=== PATIENT | female | born 1985 | race Caucasian/White ===

== ENCOUNTER 2017-10-06 21:17 | Emergency (ER) | payer OTHER, MEDICAID, SELFPAY ==
[2017-10-06 21:56] VITALS: BP 131/86; PULSE 116; RESP 16; TEMP 36.5; O2SAT 99
== END 2017-10-06 22:33 | disposition left against medical advice (07) ==
DX: K08.89 Other specified disorders of teeth and supporting structures (principal)
CPT/HCPCS: 99281; 99282

== ENCOUNTER 2018-02-21 21:32 | Emergency (ER) | payer OTHER, MEDICAID, SELFPAY ==
[2018-02-21 21:51] VITALS: BP 144/95; PULSE 105; RESP 15; TEMP 36.6; O2SAT 100; BMI 27.4
[2018-02-21 22:33] VITALS: BP 144/95; PULSE 105; RESP 15; TEMP 36.6; O2SAT 100; BMI 27.4
--- NOTE | 2018-02-21 22:46 | ED.EAR ---
HPI - Ear Problem General Chief complaint: Ear Stated complaint: RT EAR PAIN Time Seen by Provider: 02/21/18 22:32 Source: patient Mode of arrival: ambulatory Limitations: no limitations History of Present Illness HPI Narrative: Patient is a 32-year-old female who presents with right ear pain more than left ear pain but both ongoing for about 3 weeks. It hurts every time she touches it she does not want to lay down. She has a Q-tip in there. she denies any drainage no loss of hearing. No sore throat she says she has had fever but is currently afebrile. Complaint: ear pain Location: bilateral Duration: constant Severity: moderate Relieving factors: nothing Exacerbating factors: nothing Context: recent illness Discharge from ear: no Associated symptoms ear: fever Treatment prior to arrival: none Related Data Home Medications Medication Instructions Recorded Confirmed No Known Home Medications 12/27/17 12/27/17 Previous Rx's Medication Instructions Recorded hydroxyzine HCl 25 mg tablet 25 mg PO TID-QID PRN #30 tab 12/27/17 Allergies Allergy/AdvReac Type Severity Reaction Status Date / Time amoxicillin [AMOXICILLIN] Allergy Unknown HIVES Verified 02/21/18 21:51 clavulanic acid Allergy Unknown HIVES Verified 02/21/18 21:51 [CLAVULANIC ACID] montelukast [From SINGULAIR] Allergy Unknown BLOODY NOSE Verified 02/21/18 21:51 Review of Systems Review of Systems GENERAL: Denies chills,fever HEENT: See HPI RESPIRATORY: Denies dyspnea, cough, wheezing CARDIOVASCULAR: Denies chest pain, palpitations GASTROINTESTINAL: Denies nausea, vomiting MUSCULOSKELETAL: Denies extremity pain, injury SKIN: No rash, no laceration, no pruritus NEUROLOGIC: Denies weakness, dizziness, headache, numbness 8 point review of systems is negative except for those stated above and HPI PFSH Medical History Patient denies medical problems (Acute) Social History Smoking Status: Current every day smoker alcohol intake: former Exam Initial Vital Signs Initial Vital Signs: Vital Signs Temperature 97.8 F 02/21/18 21:51 Pulse Rate 105 H 02/21/18 21:51 Respiratory Rate 15 02/21/18 21:51 Blood Pressure 144/95 H 02/21/18 21:51 Pulse Oximetry 100 02/21/18 21:51 GENERAL: Well-appearing, well-nourished and in no acute distress. HEENT: Head atraumatic,EOMI, pupils reactive, neck is supple EARS: Right ear: Swelling of canal no discharge at tender externally tympanic membrane is not erythematous no bulging Left ear swelling of canal no discharge mild tenderness externally tympanic membrane visualized non erythematous PHARYNX: No erythema, no tonsillar exudate, no cervical lymphadenopathy CARDIOVASCULAR: Regular rate and rhythm without murmurs, rubs or gallops. RESPIRATORY: Breath sounds equal bilaterally, no wheezes rales or rhonchi. ABDOMEN: Soft, nontender. Normoactive bowel sounds all 4 quadrants. No guarding or rebound. EXTREMITIES: Normal range of motion, no clubbing or edema. Neurovascularly intact NEUROLOGICAL: Alert and oriented x4.Normal gait and speech. SKIN: Warm, dry, no laceration, no petechiae, no rashes or lesions. Course Orders Ordered: Discontinued Medications Neomycin/Polymyxin/Hydrocortisone (Cortisporin Otic) 2 drops EAR-BOTH NOW ONE Stop: 02/21/18 22:55 Last Admin: 02/21/18 23:01 Dose: 2 drops Vital Signs - 8 hr 02/21/18 21:51 02/21/18 22:33 Temperature 97.8 F 97.8 F Pulse Rate 105 H 105 H Respiratory Rate 15 15 Blood Pressure 144/95 H 144/95 H Pulse Oximetry 100 100 Discharge Plan Departure Patient Disposition: Home Clinical Impression: Bilateral otitis externa Discharge Date/Time: 02/21/18 23:05 Interventions: ED Discharge Assessment Last Done: 02/21/18 23:04 Instructions: DI for Otitis Externa Activity Restrictions/Additional Instructions: *You have been diagnosed with bilateral otitis externa *What to do: Do not put anything in the ears no swimming no acute *Continue to take medications as directed polytrim 2 drop every 4 hr in both ear *Follow up with your primary care provider in 2-3 days *Return to ER if you should have or any new, worsening or concerning symptoms Prescriptions: No Action No Known Home Medications RF: 0 hydroxyzine HCl 25 mg tablet 25 mg PO TID-QID PRN (Reason: itching) Qty: 30 RF: 0
[2018-02-21] MEDS: NEOMY/POLYM B/HC OTIC 10 ML 2 DROPS EAR-BOTH (23:01)
== END 2018-02-21 23:05 | disposition home or self-care (01) ==
PROVIDERS: Emergency Provider Emergency Medicine
DX: H66.93 Otitis media, unspecified, bilateral (principal)
CPT/HCPCS: 99282; 99283

== ENCOUNTER → 2018-03-21 12:36 | Outpatient (CLI) | payer OTHER, MEDICAID, SELFPAY | PROVIDERS: Visit Provider Physician Assistant | DX: N39.0 Urinary tract infection, site not specified (principal) | CPT/HCPCS: 87077; 87086; 87186 ==

== ENCOUNTER 2018-04-04 21:09 | Emergency (ER) | payer OTHER, MEDICAID, SELFPAY ==
[2018-04-04 21:25] VITALS: BP 137/94; PULSE 107; RESP 15; TEMP 36.9; O2SAT 100; BMI 27.8
[2018-04-04 22:23] VITALS: BP 121/79; PULSE 96; RESP 17; O2SAT 100
--- NOTE | 2018-04-04 22:28 | ED.FEMALEGU ---
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 She says that she has typically normal regular menstrual periods. Her last 1 was March 10 through the . She had some spotting yesterday is but did not think much of it. Today she has had heavy bleeding for the last 4 hr the going through a super tampon an hour. She has some abdominal cramping no dizziness or lightheadedness. Her test is negative. sHe admits that she has had an abnormal Pap smear about 4 years ago while she was she never went back to have another Pap smear. Her mother also has a history of cervical cancer with hysterectomy by the age of 29. MD Complaint: vaginal bleeding Related Data Previous Rx's Medication Instructions Recorded medroxyprogesterone 10 mg PO DAILY #80 tab 04/04/18 Allergies Allergy/AdvReac Type Severity Reaction Status Date / Time amoxicillin [AMOXICILLIN] Allergy Unknown HIVES Verified 04/04/18 21:25 clavulanic acid Allergy Unknown HIVES Verified 04/04/18 21:25 [CLAVULANIC ACID] montelukast [From SINGULAIR] Allergy Unknown BLOODY NOSE Verified 04/04/18 21:25 Review of Systems Review of Systems GENERAL: Denies chills, fatigue, malaise, fever, sweats, travel HEENT: Denies sinus pain, ear pain, sore throat, difficulty swallowing, neck pain RESPIRATORY: Denies dyspnea, cough, wheezing, hemoptysis, sputum. CARDIOVASCULAR: Denies chest pain, palpitations, orthopnea, edema GASTROINTESTINAL: Denies nausea, vomiting, abdominal pain, diarrhea, constipation, melena. : see HPI MUSCULOSKELETAL: Denies weakness, joint pain, or bony pain SKIN: No rash, no erythema, no pruritus NEUROLOGIC: Denies weakness, dizziness, headache, numbness, change in speech, confusion PSYCHIATRIC: No concerning psychosocial issues. 12 point review of systems is negative except for those stated above and HPI PFSH Medical History Patient denies medical problems (Acute) Social History Smoking Status: Current every day smoker alcohol intake: former Social History Smoking Status: Current every day smoker alcohol intake: former Exam Initial Vital Signs Initial Vital Signs: Vital Signs Temperature 98.5 F 04/04/18 21:25 Pulse Rate 107 H 04/04/18 21:25 Respiratory Rate 15 04/04/18 21:25 Blood Pressure 137/94 H 04/04/18 21:25 Pulse Oximetry 100 04/04/18 21:25 GENERAL: alert cooperative well-appearing female HEENT: Head atraumatic,EOMI, pupils reactive, CARDIOVASCULAR: Regular rate and rhythm without murmurs, rubs or gallops. RESPIRATORY: Breath sounds equal bilaterally, no wheezes rales or rhonchi. ABDOMEN: Soft, nontender. Normoactive bowel sounds all 4 quadrants. No guarding or rebound. PELVIC: normal female external genitalia, blood in vaginal vault cervical os open clot noted. blood is easily removed with large Q-tip. No abnormal cervical lesions noted EXTREMITIES: Normal range of motion, no clubbing or edema. Neurovascularly intact NEUROLOGICAL: Alert and oriented x4.Normal gait and speech. SKIN: Warm, dry, no laceration, no petechiae, no rashes or lesions. Course Orders Ordered: ED Orders 04/04/18 22:36 US pelvic complete Stat 04/04/18 22:40 Complete Blood Count AUTO DIFF Stat Comprehensive Metabolic Panel Stat Partial Thromboplastin Time Stat Prothrombin Time INR Stat Discontinued Medications Medroxyprogesterone Acetate (Medroxyprogesterone) 20 mg PO NOW ONE Stop: 04/04/18 23:36 Last Admin: 04/04/18 23:40 Dose: 20 mg Medroxyprogesterone Acetate (Medroxyprogesterone) 20 mg PO NOW ONE Stop: 04/04/18 23:58 Last Admin: 04/05/18 00:06 Dose: 20 mg Vital Signs - 8 hr 04/04/18 21:25 04/04/18 22:23 04/05/18 00:04 Temperature 98.5 F Pulse Rate 107 H 96 H 89 Respiratory Rate 15 17 14 Blood Pressure 137/94 H 129/88 Blood Pressure [Left Arm] 121/79 Pulse Oximetry 100 100 100 MDM - Female Genitourinary Lab Data Attestation: I reviewed the patient's lab results. Result diagrams: 04/04/18 22:40 04/04/18 22:40 Lab Results 04/04/18 04/04/18 04/04/18 Range/Units 22:40 22:40 22:40 WBC 11.2 H (4.5-11.0) X10^3/uL RBC 4.86 (4.0-5.2) X10^6/uL Hgb 12.4 (12.0-16.0) g/dL Hct 38.8 (36-46) % MCV 79.7 L (80-100) fL MCH 25.6 L (26-34) PG MCHC 32.1 (30-36) % RDW 14.1 (11.6-14.8) % Plt Count 338 (150-400) X10^3/uL Neut % (Auto) 68.6 (50-75) % Lymph % (Auto) 23.4 L (25-40) % Bibb % (Auto) 5.8 (3-14) % Eos % (Auto) 1.4 L (2-4) % Baso % (Auto) 0.8 (0-2) % Neut # (Auto) 7700 H (9965-8824) /uL Lymph # (Auto) 2600 (4756-2809) /uL Bibb # (Auto) 600 (0-900) /uL Eos # (Auto) 200 (0-450) /uL Baso # (Auto) 100 (0-100) /uL PT 12.7 (10.1-12.7) SECONDS INR 1.1 (0.9-1.3) APTT 31 (26.4-36.2) SECONDS Sodium 139 (137-145) mmol/L Potassium 3.9 (3.4-5.1) mmol/L Chloride 103 (98-107) mmol/L Carbon Dioxide 25 (22-32) mmol/L BUN 14 (7-17) mg/dL Creatinine 0.70 (0.52-1.04) mg/dL Estimated GFR > 60.0 (>60) mL/min BUN/Creatinine Ratio 20.0 (6-22) Glucose 114 H (70-100) mg/dL Calcium 9.0 (8.4-10.2) mg/dL Total Bilirubin 1.0 (0.2-1.3) mg/dL AST 23 (14-36) IU/L ALT 26 (9-52) IU/L Alkaline Phosphatase 60 (38-126) U/L Total Protein 8.1 (6.3-8.2) g/dL Albumin 4.7 (3.5-5.0) g/dL Globulin 3.4 (1.7-4.1) g/dL Albumin/Globulin Ratio 1.4 (1.0-2.8) Point of Care Testing Test Results Negative Urine Dip Bedside Urine Glucose Negative Bedside Urine Bilirubin - Negative Bedside Urine Ketone - Negative Urine Specific [place] 1.030 Bedside Urine Occult Blood +++ Bedside Urine pH 6.0 Bedside Urine Protein + 30 Bedside Urine Urobilinogen - Negative Bedside Urine Nitrite - Negative Bedside Urine Leukocytes - Negative Esterase Imaging Data Pelvic ultrasound: 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 Probable small complex follicle in right ovary. Survey scanning of the kidneys demonstrates left hydronephrosis. Etiology uncertain. MDM Narrative Medical decision making narrative: the patient's bleeding has slowed while she is in the ED. Hemodynamically stable without tachycardia. She does not have good follow-up but actually has an appointment in 2 months with a new PCP. She is given Provera instructions on when to return. I strongly recommended Pap smear, which she agrees to and will see her PCP about this. Discharge Plan Departure Patient Disposition: Home Clinical Impression: Vaginal bleeding Discharge Date/Time: 04/05/18 00:04 Interventions: ED Discharge Assessment Last Done: 04/05/18 00:04 Instructions: DI for Vaginal Bleeding Activity Restrictions/Additional Instructions: *You have been diagnosed with is vaginal bleeding *What to do: you do need to be seen by OBGYN and have this monitored. Possible further testing. *Continue to take medications as directed Pro bare a 10 mg tablet take 2 tablets every 2 hr until bleeding stops or significantly slows down, if bleeding does not stop please call provider or return to ED then take 2 tablets every 4 hr for 48 hr then take 2 tablets every 6 hr for 48 hr then it take 2 tablets every 12 hr for 48 hr then take 2 tablets a day for 7 days *Follow up with your primary care provider in 2-3 days *Return to ER if you should have persistent bleeding going through more than 1 super pad or tampon in 1 hr, increased abdominal pain, lightheadedness, passing out or any new, worsening or concerning symptoms Prescriptions: New medroxyprogesterone 10 mg tablet 10 mg PO DAILY Qty: 80 RF: 0 Referrals: [facility] [Provider Group]
--- NOTE | 2018-04-04 22:36 | DI.US.S_ITS ---
PROCEDURE: US PELVIC COMPLETE INDICATIONS: MENOMETRORRHAGIA TECHNIQUE: Real-time scanning was performed of the pelvic organs, with image documentation. Additional endovaginal scanning was necessary due to incomplete visualization of the adnexal and endometrial structures by transabdominal scanning. COMPARISON: None. FINDINGS: Transabdominal scanning: Limited scanning through the kidneys shows no hydronephrosis. No pathologic free abdominal or pelvic fluid. Endovaginal scanning: Uterus: Uterus is normal in size at 8.5 x 4.0 x 5.3 cm. The endometrium measures 9.2 mm in combined thickness. Trace complex fluid within the endometrial complex consistent with blood products.. Ovaries: Ovaries normal in size measuring 3.5 x 2.0 x 2.1 cm on the right and 2.3 x 1.5 x 1.1 cm on the left. Thickwalled, complex right ovarian cyst measuring 2.0 x 1.5 x 1.6 cm. IMPRESSION: 1. Mildly thick walled, complex right ovarian cyst measuring up to 2.0 cm. 2. Trace complex fluid within the endometrial complex suggesting residual blood products. Note: These findings are concordant with the preliminary interpretation. Dictated by: Harley LOTT Interpreted: Dominique Estrada MD on 04/05/2018 at 8:38 Approved by: Dominique Estrada M.D. on 04/05/2018 at 10:56
[2018-04-04 22:54] LABS: Add Manual Diff / Slide Review NO; Basophils Absolute Auto 100 /uL (0-100); Basophils Percent Auto 0.8 % (0-2); Eosinophils Absolute Auto 200 /uL (0-450); Eosinophils Percent Auto 1.4 % (2-4); Hematocrit 38.8 % (36-46); Hemoglobin 12.4 g/dL (12.0-16.0); Lymphocytes Absolute Auto 2600 /uL (1100-4500); Lymphocytes Percent Auto 23.4 % (25-40); Mean Corpuscular HGB Conc 32.1 % (30-36); Mean Corpuscular Hemoglobin 25.6 PG (26-34); Mean Corpuscular Volume 79.7 fL (80-100); Monocytes Absolute Auto 600 /uL (0-900); Monocytes Percent Auto 5.8 % (3-14); Neutrophils Absolute Auto 7700 /uL (1500-7000); Neutrophils Percent Auto 68.6 % (50-75); Platelet Count 338 X10^3/uL (150-400); Red Blood Cell Count 4.86 X10^6/uL (4.0-5.2); Red Cell Distribution Width 14.1 % (11.6-14.8); White Blood Cell Count 11.2 X10^3/uL (4.5-11.0)
[2018-04-04 23:00] LABS: INR 1.1 (0.9-1.3); Prothrombin Time 12.7 SECONDS (10.1-12.7)
[2018-04-04 23:02] LABS: PTT Partial Thromboplastin Tim 31 SECONDS (26.4-36.2)
[2018-04-04 23:04] LABS: Alanine Aminotransferase 26 IU/L (9-52); Albumin 4.7 g/dL (3.5-5.0); Albumin Globulin Ratio 1.4 (1.0-2.8); Alkaline Phosphatase 60 U/L (38-126); Aspartate Aminotransferase 23 IU/L (14-36); Blood Urea Nitrogen 14 mg/dL (7-17); Carbon Dioxide 25 mmol/L (22-32); Chloride 103 mmol/L (98-107); Estimated Glomerular Filt Rate > 60.0 mL/min (>60); Globulin 3.4 g/dL (1.7-4.1); Glucose 114 mg/dL (70-100); HEMOLYSIS < 15 (0-50); Potassium 3.9 mmol/L (3.4-5.1); Sodium 139 mmol/L (137-145); Total Protein 8.1 g/dL (6.3-8.2)
[2018-04-04] MEDS: MEDROXYPROGESTERONE ACETATE 10 MG TABLET 20 MG PO (23:40)
[2018-04-05 00:04] VITALS: BP 129/88; PULSE 89; RESP 14; O2SAT 100
[2018-04-05] MEDS: MEDROXYPROGESTERONE ACETATE 10 MG TABLET 20 MG PO (00:06)
== END 2018-04-05 00:04 | disposition home or self-care (01) ==
PROVIDERS: Emergency Provider Emergency Medicine
DX: N93.9 Abnormal uterine and vaginal bleeding, unspecified (principal)
CPT/HCPCS: 36591; 76830; 76856; 80053; 81003; 81025; 85025; 85610; 85730; 99283; 99284

== ENCOUNTER 2019-03-27 17:29 | Emergency (ER) | payer OTHER, MEDICAID, SELFPAY ==
[2019-03-27 17:36] VITALS: BP 128/67; PULSE 92; RESP 18; TEMP 36.8; O2SAT 100
--- NOTE | 2019-03-27 17:57 | DI.US.S_ITS ---
PROCEDURE: US OB <= 14 WEEKS FETUS INDICATIONS: BLEEDING OUTSIDE/PRIOR DATING DATA: Last menstrual period (LMP): 02/08/19. LMP-based estimated date of delivery (KWESI): 11/15/19. First dating scan (date and location): 03/27/19 this study. Estimated date of delivery (KWESI) from first dating scan: 11/19/19. TECHNIQUE: Real-time scanning was performed of the fetus and maternal pelvic organs, with image documentation. Endovaginal scanning was also performed to better visualize the fetus and maternal ovaries. COMPARISON: None. FINDINGS: Embryo: 5 mm crown-rump length, correlates with a gestational age of 6 weeks 1 day. cardiac activity at 113 beats per minute was observed. A yolk sac with normal appearance was also seen. Measurement variability in dating: +/- 4 weeks by LMP, +/- 7 days by mean sac diameter (use before 6 weeks gestation if crown-rump length not able to be measured), +/- 5 days by crown-rump length (up to 8 weeks 6 days gestation), +/- 7 days by crown-rump length (up to 13 weeks 6 days gestation). Maternal organs: Ovaries normal considering gestational status. Limited images through the kidneys demonstrate no hydronephrosis. IMPRESSION: Single living intrauterine gestation, with gestational age estimated at 6 weeks 1 day, plus or -5 days. anatomic survey is recommended at 20 weeks gestation. The delivery date is projected to be centered on 11/19/19. No perigestational hemorrhage is currently seen. Dictated by: Ryan Mena M.D. on 03/27/2019 at 21:37 Approved by: Ryan Mena M.D. on 03/27/2019 at 21:39
[2019-03-27 18:36] LABS: Bacteria Urine None Seen
[2019-03-27 18:48] LABS: Culture Indicated Urine Cult Not Indicated; RBC Urine 1-5/HPF (0-5/HPF); Squamous Epithelial Cell Urine 0-1 /HPF (0-5/HPF); WBC Urine 0-1/HPF (0-5/HPF)
[2019-03-27 19:16] LABS: HCG Quantitative /Beta subunit 21379 mIU/mL
[2019-03-27 20:00] VITALS: BP 124/66; PULSE 73; RESP 14; O2SAT 99
[2019-03-27 21:24] VITALS: BP 121/64; PULSE 74; RESP 15; O2SAT 99
--- NOTE | 2019-03-27 21:41 | ED_ITS ---
HPI - <CHRISTIANO Isaac - Last Filed: 03/27/19 22:05> General Chief complaint: Vaginal Bleeding Stated complaint: 7 weeks , started spotting Time Seen by Provider: 03/27/19 17:45 Source: patient Mode of arrival: Ambulatory Limitations: no limitations History of Present Illness HPI Narrative: This is a 34-year-old female, smoker, who presents to ED with her significant other and son with chief complaint of vaginal bleeding. LMP was 02/08/19 and is currently with with spontaneous AB3 and is 6 week 5/7 EGA at this time. Patient reports has not seen by OB provider or had verification of IUP. Actually she does have appointment tomorrow at [facility] for 1st OB ultrasound test. Patient reports vaginal bleeding started 2 hours ago before coming into ED and which is light as 1st day of normal menstruation flow after she had an intercourse. Patient denies abdominal pain, or urinary symptoms. Date of Last Menstrual Period: 02/08/19 Patient : Yes Related Data Previous Rx's Medication Instructions Recorded albuterol sulfate 90 mcg/actuation 2 inhalation INHALATION Q4-6H PRN 04/23/18 aerosol inhaler #8.5 gram benzonatate 100 mg capsule 100 mg PO TID PRN #30 cap 04/23/18 codeine 10 mg-guaifenesin 100 mg/5 10 ml PO .QHS PRN #120 ml 04/23/18 mL oral liquid prenat.vits,kathie,dvj-rcnc-wwdlx 1 tab PO DAILY #30 tab 03/27/19 Allergies Allergy/AdvReac Type Severity Reaction Status Date / Time amoxicillin [AMOXICILLIN] Allergy Unknown HIVES Verified 04/23/18 19:08 clavulanic acid Allergy Unknown HIVES Verified 04/23/18 19:08 [CLAVULANIC ACID] montelukast [From SINGULAIR] Allergy Unknown BLOODY NOSE Verified 04/23/18 19:08 Review of Systems <CHRISTIANO Isaac - Last Filed: 03/27/19 22:05> Review of Systems Narrative: General: Denies fever, chills, fatigue, malaise, sweats. HEENT: Denies sinus pain, ear pain, sore throat, difficulty swallowing, dizziness. Respiratory: Denies dyspnea, cough, wheezing, hemoptysis, sputum. Cardiovascular: Denies chest pain, palpitations, orthopnea, edema. Gastrointestinal: Denies nausea, vomiting, abdominal pain, diarrhea, constipation, melena. : Denies dysuria, frequency, incontinence, hematuria, urinary retention. Musculoskeletal: Denies weakness, joint pain or bony pain. Skin: Denies rash, skin lesions, or other. Neurologic: Denies weakness, headache, numbness, change in speech, confusion, seizures, incoordination. Psychiatric: No concerning psychosocial issues. 12-point review of systems is negative except for those stated above. Genitourinary Genitourinary: Reports abnormal vaginal bleeding (about 6 week 5/7 at this time), Denies dysuria, Denies pelvic pain, Denies urinary hesitancy and De nies urinary urgency PMFSH - <CHRISTIANO Isaac - Last Filed: 03/27/19 22:05> Past Medical History Surgical history: Reports and other (Colonoscopy, ankle surgery) Date of Last Menstrual Period: 02/08/19 Patient : Yes Exam <CHRISTIANO Isaac - Last Filed: 03/27/19 22:05> Narrative Exam Narrative: GEN: Alert, oriented x 3, well appearing and nourished, and in no acute distress. Head: Normal cephalic, atraumatic. No scalp or temporal tenderness, palpable mass or rash. EYES: Pupils are equal, round, and reactive to light and accommodation. Extraocular muscles are intact bilaterally. There is no subconjunctival hemorrhage, exudate and sclera non-icteric. ENT: Bilateral auditory canals and tympanic membranes clear. Hearing grossly intact. Nose without bleeding, purulent discharge or deviation. Facial sinuses nontender to palpate. Mucous membrane moist, no mucosal lesion. Throat without erythema, tonsillar hypertrophy or exudate. Uvula in midline, airway patent. Neck: Trachea in midline. No JVD, non-tender without lymphadenopathy. No mass es or thyroid megaly. Supple, non-tender and no meningeal signs. CARDIAC: Normal regular rate and rhythm without murmurs, gallops, or rubs. No chest wall tenderness. No peripheral edema, cyanosis or pallor. Capillary refill is less than 2 seconds. RESPIRATORY: Lungs are clear to auscultate bilaterally. No cough, wheezes, rales, or rhonchi. No stridor, respiratory distress, increase work of breathing, or accessary muscle used. ABD: Abdomen soft, nontender and non-distended. No guarding or rebound tenderness to palpate. Bowel sounds are normal in all 4 quadrants. There is no palpable masses or organomegaly. EXT: Full painless ROM of all extremities with no loss of sensation, strength, effusion or edema. SKIN: Warm, dry, normal color for patient. No erythema, lesions or rash over visible areas. BACK: Nontender without deformity or crepitance. No flank tenderness. NEUROLOGICAL: Alert and oriented to place, time and person. Sensation and motor function intact bilaterally. No facial droops, dysphasia. PSYCHIATRIC: Good judgement and reason, without hallucinations, abnormal affect or abnormal behaviors during the examination. Initial Vital Signs Initial Vital Signs: Vital Signs Temperature 98.2 F 03/27/19 17:36 Pulse Rate 92 H 03/27/19 17:36 Respiratory Rate 18 03/27/19 17:36 Blood Pressure 128/67 03/27/19 17:36 Pulse Oximetry 100 03/27/19 17:36 <Gordon Gupta DO - Last Filed: 03/27/19 22:23> Initial Vital Signs Initial Vital Signs: Vital Signs Temperature 98.2 F 03/27/19 17:36 Pulse Rate 92 H 03/27/19 17:36 Respiratory Rate 18 03/27/19 17:36 Blood Pressure 128/67 03/27/19 17:36 Pulse Oximetry 100 03/27/19 17:36 Scores <CHRISTIANO Isaac - Last Filed: 03/27/19 22:05> GCS [place] coma scale eye opening: Spontaneous [place] coma scale verbal response: Orientated Charlie coma scale motor response: Obey commands Charlie coma scale total score: 15 Course <CHRISTIANO Isaac - Last Filed: 03/27/19 22:05> Orders Ordered: ED Orders 03/27/19 17:57 US OB <= 14 weeks fetus Stat 03/27/19 18:10 Urine Microscopic Stat 03/27/19 18:11 ABO RH Type Stat HCG Quantitative /Beta subunit Stat Vital Signs Vital signs: Vital Signs - 8 hr 03/27/19 17:36 03/27/19 20:00 03/27/19 21:24 Temperature 98.2 F Pulse Rate 92 H 73 74 Respiratory Rate 18 14 15 Blood Pressure 128/67 Blood Pressure [Right Arm] 124/66 121/64 Pulse Oximetry 100 99 99 <Gordon Gupta DO - Last Filed: 03/27/19 22:23> Orders Ordered: ED Orders 03/27/19 17:57 US OB <= 14 weeks fetus Stat 03/27/19 18:10 Urine Microscopic Stat 03/27/19 18:11 ABO RH Type Stat HCG Quantitative /Beta subunit Stat Vital Signs Vital signs: Vital Signs - 8 hr 03/27/19 17:36 03/27/19 20:00 03/27/19 21:24 Temperature 98.2 F Pulse Rate 92 H 73 74 Respiratory Rate 18 14 15 Blood Pressure 128/67 Blood Pressure [Right Arm] 124/66 121/64 Pulse Oximetry 100 99 99 MDM - OB/Uterine Contractions <CHRISTIANO Isaac - Last Filed: 03/27/19 22:05> Differential Diagnosis Differential diagnosis: Likely other (Threatened , ectopic ) Medical Records Attestation: I reviewed the patient's medical records. Lab Data Attestation: I reviewed the patient's lab results. Labs: Lab Results 03/27/19 03/27/19 03/27/19 Range/Units 18:10 18:11 18:11 HCG, Quant [id number] mIU/mL Urine RBC 1-5/hpf (0-5/HPF) Urine WBC 0-1/hpf (0-5/HPF) Ur Squamous Epith Cells 0-1 /hpf (0-5/HPF) Urine Bacteria None seen (None) Ur Culture Indicated? Cult not indicated Blood Type O Positive Point of Care Testing Test Results Positive Urine Dip Bedside Urine Glucose Negative Bedside Urine Bilirubin - Negative Bedside Urine Ketone - Negative Urine Specific [place] 1.025 Bedside Urine Occult Blood ++ Bedside Urine pH 6.0 Bedside Urine Protein - Negative Bedside Urine Urobilinogen - Negative Bedside Urine Nitrite - Negative Bedside Urine Leukocytes - Negative Esterase Imaging Data US - OB: Radiologist's Impression: [address] [address] Ultrasound Report Signed Patient: Kalpana Ramírez FMR#: [id number] : 1985Acct:[id number] Age/Sex: 34 / FDate of Service: 03/27/19 Loc: ED Accession Number: [id number] Procedure: US OB <= 14 weeks fetus Ordering Provider: Edis Zuleta PROCEDURE: US OB <= 14 WEEKS FETUS INDICATIONS: BLEEDING OUTSIDE/PRIOR DATING DATA: Last menstrual period (LMP): 02/08/19. LMP-based estimated date of delivery (KWESI): 11/15/19. First dating scan (date and location): 03/27/19 this study. Estimated date of delivery (KWESI) from first dating scan: 11/19/19. TECHNIQUE: Real-time scanning was performed of the fetus and maternal pelvic organs, with image documentation. Endovaginal scanning was also performed to better visualize the fetus and maternal ovaries. COMPARISON: None. FINDINGS: Embryo: 5 mm crown-rump length, correlates with a gestational age of 6 weeks 1 day. cardiac activity at 113 beats per minute was observed. A yolk sac with normal appearance was also seen. Measurement variability in dating: +/- 4 weeks by LMP, +/- 7 days by mean sac diameter (use before 6 weeks gestation if crown-rump length not able to be measured), +/- 5 days by crown-rump length (up to 8 weeks 6 days gestation), +/- 7 days by crown-rump length (up to 13 weeks 6 days gestation). Maternal organs: Ovaries normal considering gestational status. Limited images through the kidneys demonstrate no hydronephrosis. IMPRESSION: Single living intrauterine gestation, with gestational age estimated at 6 weeks 1 day, plus or -5 days. anatomic survey is recommended at 20 weeks gestation. The delivery date is projected to be centered on 11/19/19. No perige stational hemorrhage is currently seen. Dictated by: Ryan Mena M.D. on 03/27/2019 at 21:37 Approved by: Ryan Mena M.D. on 03/27/2019 at 21:39 MDM Narrative Medical decision making narrative: Patient with with 3AB and currently EGA of 6 weak and5/7 days presents to ED with light vaginal bleeding after intercourse. Patient denies chest pain, breathing dizziness or abdominal pain. Patient's IUP has not been verified at this time. UA is negative for infection with positive UhCG. BetaHCG is 21,379 today and patient's blood type is O- positive. Ultrasound for pelvic verified IUP with normal heart tone of a single living with gestational age estimated at 6 week 1 day +/-5 days. Patient reports vaginal bleeding has been slow down at this time and she is asymptomatic and with stable vital signs. Return precautions were discussed with the patient and patient discharged to home with vitamin and advised to follow up with Ob provider. Patient verbalized understanding and agrees with the treatment plan. <Gordon Gupta, DO - Last Filed: 03/27/19 22:23> Lab Data Labs: Lab Results 03/27/19 03/27/19 03/27/19 Range/Units 18:10 18:11 18:11 HCG, Quant [id number] mIU/mL Urine RBC 1-5/hpf (0-5/HPF) Urine WBC 0-1/hpf (0-5/HPF) Ur Squamous Epith Cells 0-1 /hpf (0-5/HPF) Urine Bacteria None seen (None) Ur Culture Indicated? Cult not indicated Blood Type O Positive Point of Care Testing Test Results Positive Urine Dip Bedside Urine Glucose Negative Bedside Urine Bilirubin - Negative Bedside Urine Ketone - Negative Urine Specific [place] 1.025 Bedside Urine Occult Blood ++ Bedside Urine pH 6.0 Bedside Urine Protein - Negative Bedside Urine Urobilinogen - Negative Bedside Urine Nitrite - Negative Bedside Urine Leukocytes - Negative Esterase Discharge Plan Departure Patient Disposition: Home Clinical Impression: Threatened Discharge Date/Time: 03/27/19 22:01 Instructions: DI for Vaginal Bleeding During Activity Restrictions/Additional Instructions: You have been diagnosed with [vaginal bleeding during . Estimated date of delivery is 11/19/19 and verified normal heart tone with intrauterine . Beta HCG level was 21,379 today. Urine does not appears to be h aving on infection. Your blood type is O positive.] What to do: *Take your medications as directed. You should take vitamins daily. Avoid smoking, drinking alcohol or any drug use. Please limit using medications to Tylenol if you have any pain or fever. Pelvic rest until vaginal bleeding stops. *Follow up with your primary care provider in 2-3 days, call for an appointment. Let them know you were seen in the ED and that we asked you to be seen in follow up. *Return to ED if you have any new, worsening, or concerning symptoms, such as [severe vaginal bleeding, abdominal pain, fever, chest pain, breathing difficulty, unable to tolerate fluids or any acute concerns]. Prescriptions: New prenat.vits,kathie,gdf-ophf-nlata Tablet 1 tab PO DAILY Qty: 30 RF: 0 No Action benzonatate 100 mg capsule 100 mg PO TID PRN (Reason: cough) Qty: 30 RF: 0 codeine-guaifenesin [Cheratussin AC] 10-100 mg/5 mL liquid 10 ml PO .QHS PRN (Reason: cough limiting sleep) Qty: 120 RF: 0 albuterol sulfate 90 mcg/actuation HFA aerosol inhaler 2 inhalation INHALATION Q4-6H PRN (Reason: shortness of breath or wheezing) Qty: 8.5 RF: 0 Referrals: Zara Rivers DO [Non-Staff] - <Gordon Gupta DO - Last Filed: 03/27/19 22:23> Sign Out Provider Sign Out Attestation: Dr Gupta Co-Sign Statement: I was available for consultation during this patient's emergency department visit. This chart is signed by myself for administrative purposes only. I did not have direct contact with this patient during this visit. They were seen independently by the APC.
== END 2019-03-27 22:01 | disposition home or self-care (01) ==
PROVIDERS: Emergency Provider Nurse Practitioner Family
DX: O20.0 Threatened abortion (principal); Z3A.01 Less than 8 weeks gestation of pregnancy
CPT/HCPCS: 36415; 76801; 76817; 81003; 81015; 81025; 84702; 86900; 86901; 99283; 99284

== ENCOUNTER → 2019-07-11 14:09 | Outpatient (CLI) | payer OTHER, MEDICAID, SELFPAY ==
--- NOTE | 2019-07-11 | DI.US.S_ITS ---
PROCEDURE: US OB >= 14 WEEKS FETUS INDICATIONS: 20 WEEK ANATOMY SCAN OUTSIDE/PRIOR DATING DATA: Last menstrual period (LMP): 02/08/19. LMP-based estimated date of delivery (KWESI): 11/15/19. First dating scan (date and location): 03/27/19. Estimated date of delivery (KWESI) from first dating scan: 11/19/19. TECHNIQUE: Real-time scanning was performed of the fetus, with image documentation and biometric measurements. Endovaginal scanning: Not performed COMPARISON: None. FINDINGS: General: A single living intrauterine gestation is present. Presentation: Transverse with head towards maternal right side Placenta: Placental position is anterior, without previa. Amniotic fluid index: 19.9 cm, normal range is 5-24 cm. heart rate: 132 beats per minute. Maternal cervical canal: 3.8 cm long. Normal lower limit is 2.5 cm. biometrics: Biparietal diameter: 5.3 cm, 22 weeks, one day Head circumference: 19.7 cm, 21 weeks, 6 days Abdominal circumference: 17.6 cm, 22 weeks, 3 days Femur length: 3.5 cm, 21 weeks, one day Estimated gestational age from initial scan: 21 weeks, 2 days Composite gestational age from present scan: 21 week, 6 days Estimated weight and percentile: 459 g, 77% Measurement variability for biometric dating: +/- 7 days from 14 weeks to 15 weeks 6 days gestation, +/- 10 days from 16 weeks to 21 weeks 6 days gestation, +/- 2 weeks from 22 weeks to 27 weeks 6 days gestation, +/- 3 weeks for 28 weeks gestation or later. weight reference: 4500 g or EFW >90/95% is considered macrosomia or large for gestational age. EFW <10% is small for gestational age. EFW 5% or less is considered intra-uterine growth restriction. Anatomic survey: Neuro: Ventricles are non-dilated at less than 10 mm. Cisterna magna is normal at 3-11 mm. Cerebellum is normal in size and morphology. Nuchal skin fold: Normal at less than 6 mm between 14-21 weeks gestational age. Face: Nose and lips, facial profile are normal. Spine: Not well-seen Heart: 4-chambered heart is present, with normal ventricular outflow tracts. Diaphragm: Diaphragm is intact. Stomach: Left-sided stomach is present. Kidneys: No hydronephrosis. Normal is less than 5 mm in 2nd trimester, less than 7 mm in 3rd trimester. Cord: 3-vessel cord has orthotopic insertion. Bladder: Normal in size. Extremities: All 4 extremities identified. IMPRESSION: 1. Single live intrauterine with fetus in transverse lie. Normal amount of an inadequate fluid. Normal growth. 2. spine is not well visualized due to position. Rest of the anatomic survey is normal. Dictated by: Jose Hurt M.D. on 07/11/2019 at 17:03 Approved by: Jose Hurt M.D. on 07/11/2019 at 17:06
== END ==
PROVIDERS: Referring Provider Nurse Practitioner Obstetrics & Gynecology; Visit Provider Nurse Practitioner Obstetrics & Gynecology
DX: Z36.89 Encounter for other specified antenatal screening (principal); Z3A.21 21 weeks gestation of pregnancy
CPT/HCPCS: 76811

== ENCOUNTER → 2019-08-13 14:19 | Outpatient (CLI) | payer OTHER, MEDICAID, SELFPAY ==
--- NOTE | 2019-08-13 | DI.US.S_ITS ---
PROCEDURE: US OB FOLLOW UP INDICATIONS: FOLLOW-UP SPINE OUTSIDE/PRIOR DATING DATA: Last menstrual period (LMP): 02/08/19. LMP-based estimated date of delivery (KWESI): 11/15/19. First dating scan (date and location): 03/27/19. Estimated date of delivery (KWESI) from first dating scan: 11/19/19. TECHNIQUE: Real-time scanning was performed of the fetus, with image documentation and biometric measurements. Endovaginal scanning: Not performed COMPARISON: [facility], OB >= 14 WEEKS FETUS, 07/11/2019, 14:24. [facility], OB <= 14 WEEKS FETUS, 03/27/2019, 21:07. FINDINGS: General: A single living intrauterine gestation is present. Presentation: Vertex, spine not well visualized however maternal right side Placenta: Placental position is anterior, without previa. Amniotic fluid index: 14.0 cm, normal range is 5-24 cm. heart rate: 150 beats per minute. Maternal cervical canal: 3.7 cm long. Normal lower limit is 2.5 cm. Other: spine again not well visualized due to gestational position. IMPRESSION: Single living intrauterine fetus in vertex presentation. Spine again not well visualized secondary to gestational position despite best attempts, consider repeat examination for followup. Dictated by: Nate Anderson M.D. on 08/13/2019 at 16:30 Approved by: Nate Anderson M.D. on 08/13/2019 at 16:38
== END ==
PROVIDERS: Referring Provider Nurse Practitioner Obstetrics & Gynecology; Visit Provider Nurse Practitioner Obstetrics & Gynecology
DX: Z36.2 Encounter for other antenatal screening follow-up (principal); Z3A.26 26 weeks gestation of pregnancy
CPT/HCPCS: 76816

== ENCOUNTER → 2019-09-25 15:16 | Outpatient (ROUT) | payer OTHER, MEDICAID, SELFPAY ==
[2019-09-25 15:26] LABS: Hematocrit 31.3 % (36-46); Hemoglobin 10.1 g/dL (12.0-16.0); Mean Corpuscular HGB Conc 32.3 % (30-36); Mean Corpuscular Hemoglobin 25.4 PG (26-34); Mean Corpuscular Volume 78.6 fL (80-100); Platelet Count 402 X10^3/uL (150-400); Red Blood Cell Count 3.98 X10^6/uL (4.0-5.2); Red Cell Distribution Width 13.8 % (11.6-14.8); White Blood Cell Count 16.5 X10^3/uL (4.5-11.0)
[2019-09-25 15:33] LABS: UR Morphine/Opiate cutoff 300 Negative (Negative); Ur Creatinine Normal (Normal); Ur Specific Gravity Normal (Normal); Urine Amphetamines Negative (Negative); Urine Barbiturates Negative (Negative); Urine Benzodiazepines Negative (Negative); Urine Cocaine Negative (Negative); Urine MDMA Negative (Negative); Urine Methadone Negative (Negative); Urine Methamphetamines Negative (Negative); Urine Oxycodone Negative (Negative); Urine Phencyclidine Negative (Negative); Urine Tetrahydrocannabinol Positive (Negative); Urine Tricyclic Antidepressant Negative (Negative); Urine pH Normal (Normal)
[2019-09-25 15:38] LABS: Glucose 115 mg/dL (70-100)
== END ==
PROVIDERS: Visit Provider Nurse Practitioner Obstetrics & Gynecology
DX: O09.523 Supervision of elderly multigravida, third trimester (principal); Z13.1 Encounter for screening for diabetes mellitus; Z3A.32 32 weeks gestation of pregnancy
CPT/HCPCS: 80305; 82947; 85027

== ENCOUNTER → 2019-10-16 14:54 | Outpatient (ROUT) | payer OTHER, MEDICAID, SELFPAY | PROVIDERS: Visit Provider Nurse Practitioner Obstetrics & Gynecology | DX: Z34.90 Encounter for supervision of normal pregnancy, unspecified, unspecified trimester (principal); Z36.85 Encounter for antenatal screening for Streptococcus B; Z3A.36 36 weeks gestation of pregnancy | CPT/HCPCS: 87081 ==

== ENCOUNTER 2019-10-23 10:43 | Inpatient (IN) | payer OTHER, MEDICAID, SELFPAY ==
[2019-10-23] VITALS (8 sets, daily range): BP systolic 85–114; BP diastolic 45–65; PULSE 80–92; RESP 10–18; TEMP 35.9–36.2; O2SAT 96–99
--- NOTE | 2019-10-23 13:01 | PM.OBHP.1 ---
OB HPI Date/Time Date of admission: 10/23/19 Date Patient Seen: 10/23/19 Time Patient Seen: 12:30 History of Present Condition Chief complaint: observation : 3 Para: 1 Estimated Date of Delivery: 11/15/19 Estimated Gestational Age (weeks): 36.5 Narrative: Kalpana Ramírez is a 34 year old female @ [id number] PPROM this morning at 0900 with immediate onset of mild contractions. +FM. Fluid is clear. GBS is negative. Partner is incarcerated and her mother is present for support. Indications Operative indications ( section): previous uterine surgery History of Present care: good care Dating criteria: LMP confirmed by 1st trimester US Ultrasounds: normal mid trimester US Obstetrical complications: none Preadmission Labs Blood type: O (+) positive -: Antibody screen: negative, Cystic fibrosis screen: negative, GBS status: negative, HBsAG: negative, HIV: negative and RPR/VDLR: negative -: Chlamydia screen: not detected and Gonorrhea screen: not detected -: Rubella: not immune HCT: 31.3 HCAB: negative PAP: Normal Cell-free DNA: negative, female 1 hr GTT: 90 Narrative: [id number] on admission Prior (ies) History: 1999-early elective 09/05/12- primary for active phase arrest @ 41wks, male 9#2oz, GDMA1 Evaluation Evaluation Baseline heart rate: 140 Variability: Moderate (11-25) monitor accelerations: Present monitor decelerations: Absent Contraction Frequency (minutes): 4 Uterine Contraction Intensity: Mild Cervical dilation (cm): 1 Cervical effacement (%): 70 station: -2 Non-invasive Membranes Rupture Test: positive PFSH Medical History (Updated 10/23/19 @ 13:23 by Evelyne Valle CNM) Depression (Acute) Patient denies medical problems (Acute) Surgical History (Updated 09/30/19 @ 18:45 by Lynne Luo MD) Status post section (Acute) Social History Smoking Status: Current every day smoker alcohol intake: former Meds Home Medications and Allergies Home Medications Medication Instructions Recorded Confirmed Type albuterol sulfate 90 mcg/actuation 2 inhalation INHALATION Q4-6H PRN 04/23/18 09/30/19 Rx aerosol inhaler #8.5 gram prenat.vits,kathie,pxa-wmnv-iwnxq 1 tab PO DAILY #30 tab 03/27/19 09/30/19 Rx Double Electric breast Pump and #1 each 10/16/19 Rx Supplies ferrous sulfate 325 mg PO DAILY 10/23/19 10/23/19 History Allergies Allergy/AdvReac Type Severity Reaction Status Date / Time amoxicillin [AMOXICILLIN] Allergy Unknown HIVES Verified 09/30/19 15:52 clavulanic acid Allergy Unknown HIVES Verified 09/30/19 15:52 [CLAVULANIC ACID] montelukast [From SINGULAIR] Allergy Unknown BLOODY NOSE Verified 09/30/19 15:52 Review of Systems Review of Systems ROS: Yes All systems reviewed with the patient and are negative except as otherwise documented Exam Vital Signs (past 8 hours): BP 122/73, [id number], T36.3C Temporal Assessment and Plan Assessment and Plan Assessment and Plan narrative: Admit, routine pre-op orders. Consulted for primary KRISTIN. Anticipate 48 hour admission.
[2019-10-23 13:03] LABS: COVID19 -Nasal RAPID Negative (Negative)
[2019-10-23 13:24] LABS: Add Manual Diff / Slide Review NO; Basophils Absolute Auto 100 /uL (0-100); Basophils Percent Auto 0.7 % (0-2); Eosinophils Absolute Auto 200 /uL (0-450); Eosinophils Percent Auto 0.8 % (2-4); Hematocrit 31.2 % (36-46); Lymphocytes Absolute Auto 2300 /uL (1100-4500); Lymphocytes Percent Auto 12.2 % (25-40); Mean Corpuscular Hemoglobin 24.6 PG (26-34); Mean Corpuscular Volume 76.8 fL (80-100); Monocytes Absolute Auto 700 /uL (0-900); Neutrophils Absolute Auto 15300 /uL (1500-7000); Neutrophils Percent Auto 82.3 % (50-75); Platelet Count 332 X10^3/uL (150-400); Red Blood Cell Count 4.06 X10^6/uL (4.0-5.2); Red Cell Distribution Width 15.1 % (11.6-14.8); White Blood Cell Count 18.6 X10^3/uL (4.5-11.0)
[2019-10-23] MEDS: CEFAZOLIN 2 GM/100 ML FROZ.PIGGY IV (13:55)
--- NOTE | 2019-10-23 14:04 | SUR.OPER ---
Supine on Padded OR bed, head on pillow, safety belt at thigh, arms secured on padded arm boards at <90 degrees abduction. Bump under right buttock. Legs uncrossed with pillow under knees, gel pad to heels, tape over blanket to lower legs.
--- NOTE | 2019-10-23 14:04 | SUR.OPER ---
heart tones 144. Cord Blood x 2 and placenta to L&D with OB Rn
[2019-10-23] MEDS: LACTATED RINGERS 1,000 ML 100 ML IV (14:12)
--- NOTE | 2019-10-23 14:13 | SUR.OPER ---
Time of live female 1411.
--- NOTE | 2019-10-23 14:44 | P.PCN_ITS ---
Procedures Date/Time Date of procedure: 10/23/19 Time of procedure: 14:11 General Procedure description: I assisted the OB continuing education instructor in the section for this patient. My responsibilities included retracting and suctioning, providing fundal pressure during delivery and following with suture during closure. Please see the OB's note for details of the surgery. Complications: none
--- NOTE | 2019-10-23 15:17 | SUR.PHASEI ---
Stable PACU stay, low BP now resolved treated with IV fluids.
[2019-10-23] MEDS: KETOROLAC 30 MG/ML VIAL IV ×2 (16:40→22:36)
[2019-10-23] MEDS: diphenhydrAMINE 50 MG/ML VIAL 25 MG IV (17:37)
--- NOTE | 2019-10-23 18:16 | PM.GYNOP.1 ---
Operative Date/Time/Diagnoses Date of procedure: 10/23/19 Time of procedure: 14:35 Pre-op diagnosis: 36 weeks gestation Spontaneous rupture of membranes Previous C section Post-op diagnosis: same Procedure & Clinicians Procedure: Procedures Operation Date: 10/23/19 13:15 Actual Procedures Side Surgeon p Section Lynne Luo MD Indications: 36 weeks gestation Spontaneous rupture of membranes Previous C section Surgeon: Lynne Luo Automatic Serging Machine Operator: Evelyne Valle Anesthesia Type: Spinal (with Duramorph) Operative Notes Findings: Live female in vertex presentation Normal uterus, tubes and ovaries Closure Type: primary Specimen(s): other (Placenta to path, cord bloods to lab) Applied: catheter (To continuous drainage) Estimated blood loss (mL): 350 Blood products transfused: none Procedure in detail: After informed consent was obtained, the patient was taken to the operating room where she was placed in the seated position. After spinal anesthesia with Duramorph was administered, she was placed in the dorsal supine position with a leftward tilt. A time-out was performed. After spinal anesthesia was found be adequate, a Pfannenstiel skin incision was made through the previous incision and carried through to the underlying layer of fascia. The fascia was nicked in the midline and the incision extended bilaterally with the Saxena scissors. There were some adhesions in the subcutaneous layer and near the fascia. The superior aspect of the fascial incision was grasped with the Alex clamps, elevated, and underlying rectus muscles dissected off sharply and bluntly. Attention was then turned to the inferior aspect of this incision which in a similar fashion, was grasped with the Alex clamps, elevated, and underlying rectus muscles dissected off sharply and bluntly. The rectus muscles were in the midline. The peritoneum was grasped between 2 hemostats and entered sharply with the Metzenbaum scissors. There was the peritoneal adhesion was taken down with the Bovie and Metzenbaum scissors. The peritoneal incision was extended superiorly and inferiorly with good visualization of the bladder. The bladder blade was inserted. The vesicouterine peritoneum was identified, grasped with the pickup, and entered sharply with the Metzenbaum scissors. This incision was extended bilaterally, and the bladder flap was created digitally. The lower uterine segment was found to be very thin. The lower uterine segment was incised in a transverse fashion. Upon entering the amniotic sac there was a small amount of clear amniotic fluid. The infant's head was delivered with vacuum assistance. The nose and mouth were suctioned with bulb suction. The remainder of the body delivered without difficulty. The cord was double clamped and cut. Cord bloods were obtained. The placenta was delivered spontaneously with slight traction. Pitocin was given in the IV fluids. The uterus was firm. The uterus was cleared of all clots and debris. The uterine incision was closed with 1. Chromic in a running interlocking fashion. A 2nd layer of the same same suture was used for an imbricating layer. Hemostasis was achieved. The tubes and ovaries were examined and were found to be normal. The bladder flap was not reapproximated. The peritoneum was closed using 2 0 Vicryl in a running fashion. The fascia was reapproximated using 0 Vicryl in a running fashion. The subcutaneous layer was irrigated with warm normal saline. Four simple interrupted sutures with 3 0 Vicryl were placed to reapproximate the subcutaneous layer. The skin was closed with 4 0 Biosyn in a subcuticular fashion. Steri-Strips, and an Aquacel dressing were placed. The fundus of the uterus was marked with a marker. The uterus was expressed of a small amount of old blood. Sponge, lap, and instrument counts were correct x2. The patient tolerated the procedure well, and was taken to PACU in stable condition. Complications: none Post-operative Condition: stable Disposition: PACU Plan for aftercare: To Center after recovery
[2019-10-23] MEDS: OXYCODONE/ACETAMINOPHEN 5/325 TABLET 1 TAB PO (21:45)
[2019-10-23] MEDS: diphenhydrAMINE 25 MG TABLET PO (22:36)
[2019-10-24] MEDS: LACTATED RINGERS 1,000 ML 100 ML IV (00:32)
[2019-10-24] MEDS: KETOROLAC 30 MG/ML VIAL IV ×2 (04:16→10:30)
[2019-10-24 06:08] LABS: Hematocrit 26.8 % (36-46); Hemoglobin 8.7 g/dL (12.0-16.0)
[2019-10-24] MEDS: OXYCODONE/ACETAMINOPHEN 5/325 TABLET 1 TAB PO ×3 (10:30→23:14)
[2019-10-24] MEDS: DOCUSATE 250 MG CAPSULE PO (10:30)
[2019-10-24] MEDS: diphenhydrAMINE 25 MG TABLET PO ×2 (10:30→15:46)
[2019-10-24] MEDS: PRENATAL VIT,CALC/IRON/FOLIC 1 TABLET 1 TAB PO (10:30)
[2019-10-24] MEDS: IBUPROFEN 600 MG TABLET PO ×2 (15:47→23:15)
--- NOTE | 2019-10-24 17:54 | PM.OBPN.1 ---
Subjective - OB Subjective Patient comments: no complaints, pain well controlled, tolerating diet, flatus present and other (Voided without the catheter) [place] baby status: doing well and nursing well feeding status: exclusively breast feeding Date Patient Seen: 10/24/19 Time Patient Seen: 17:54 Exam Vital Signs (past 8 hours): Oxygen Delivery Method Room Air Narrative Exam Narrative: Generally: Patient is sitting up in bed, no acute distress Lungs: Clear to auscultation bilaterally Cardiovascular: Regular rate and rhythm Fundus: Firm at U -1 Incision: Clean dry and intact with Aquacel dressing Extremities: Negative Homans, no edema Objective Labs Result Diagrams: 10/24/19 06:00 Labs: Laboratory Results - last 24 hr 10/24/19 06:00 Hgb 8.7 L Hct 26.8 L Assessment & Plan Plan day: 1 plan OB: routine postop care Time Spent With Patient Time: Total time spent is greater than 50% in coordination of care (as documented) at patient's floor/unit and/or counseling patient: Time with patient: 15-24 minutes
[2019-10-25] MEDS: DOCUSATE 250 MG CAPSULE PO (08:11)
[2019-10-25] MEDS: IBUPROFEN 600 MG TABLET PO ×2 (08:11→13:48)
[2019-10-25] MEDS: PRENATAL VIT,CALC/IRON/FOLIC 1 TABLET 1 TAB PO (08:11)
[2019-10-25] MEDS: OXYCODONE/ACETAMINOPHEN 5/325 TABLET 1 TAB PO ×2 (08:12→13:47)
[2019-10-25 11:14] VITALS: BP 133/85; PULSE 86; RESP 18; TEMP 37.3
--- NOTE | 2019-10-25 13:24 | P.DS_ITS ---
Discharge Providers Provider Date of admission: 10/23/19 10:43 Discharge Date: 10/25/19 Consults: 10/23/19 16:02 Consult to Engineering Design Supervisor Routine Comment: Discharge provider: Lynne Luo MD Summary Hospital Course Date Patient Seen: 10/25/19 Time Patient Seen: 13:24 Procedures: Spinal anesthesia Repeat low-transverse section Hospital Course: Patient is a 34-year-old 3 para 2 who presented on October 23, 2019 with spontaneous rupture of membranes at 36-,5/7 weeks gestation. She had had a prior section. She underwent a repeat low-transverse section without complication. Her postoperative course was unremarkable and she is discharged home on postop day # 2. Her pain is well controlled. She is tolerating a diet. She has voided without the catheter. She is ambulating without assistance. is going well. Peripartum Data Delivery Method: Section Laceration Description: None Episiotomy description: None Procedures: Spinal anesthesia Repeat low-transverse section complications: none 1: Gender: Male Disposition of : home Status at Discharge Cognitive/behavioral status at discharge: oriented Functional status at discharge: independent ambulation Overall status at discharge: patient is progressing back to baseline Time Spent with Patient Time attestation: Total time spent providing and/or coordinating discharge services: Objective Labs Result Diagrams: 10/24/19 06:00 Exam Vital Signs (past 8 hours): - 10/25/19 11:14 Temperature 99.1 F Pulse Rate 86 Respiratory Rate 18 Blood Pressure 133/85 Oxygen Delivery Method Room Air Discharge Plan Discharge Plan Patient Disposition: Home Discharge comment: Call with fever, chills, redness or drainage around incision or bleeding vaginally more than a pad in an hour Discharge orders & Medications Prescriptions: New ibuprofen 600 mg tablet 600 mg PO Q6H PRN (Reason: pain) Qty: 30 RF: 2 docusate sodium [Colace] 100 mg capsule 100 mg PO DAILY Qty: 20 RF: 2 oxycodone-acetaminophen [Percocet] 5-325 mg tablet 1 tab PO Q4-6H PRN (Reason: pain) Qty: 30 RF: 0 PNV 119-iron fum-folic acid 29 mg iron- 1 mg tablet 1 tab PO DAILY Qty: 30 RF: 11 Continued albuterol sulfate 90 mcg/actuation HFA aerosol inhaler 2 inhalation INHALATION Q4-6H PRN (Reason: shortness of breath or wheezing) Qty: 8.5 RF: 0 ferrous sulfate 325 mg (65 mg iron) Tablet 325 mg PO DAILY RF: 0 prenat.vits,kathie,ijz-seid-paowd Tablet 1 tab PO DAILY Qty: 30 RF: 0 No Action (DME) Double Electric breast Pump and Supplies See Rx Instructions .ROUTE .MEDSUPPLY Qty: 1 RF: 0 Follow up/Referrals: Evelyne Valle CNM [[employer]] - 10/31/19 12:45 pm (To see Evelyne on 10/30 @0984 for dressing removal. Tele health appointment on 11/05 at 12pm. post visit on 12/03 at 12pm) Diet/Activity/Treatments Diet: Regular Activity: No heavy lifting Skin/Wound/Dressing Care Report to your healthcare provider any signs of infection, such as:: chills, fever, increased pain, unusual drainage and unusual redness Dressing: Do not remove Visit Report/Discharge Packet Instructions: DI for , DI for Prescription Opioid Use Stand Alone Forms: Discharge: Care
== END 2019-10-25 14:15 | disposition home or self-care (01) | DRG 540 ==
PROVIDERS: Nurse Practitioner Obstetrics & Gynecology; Admitting Provider Obstetrics & Gynecology; Referring Provider Obstetrics & Gynecology; Visit Provider Obstetrics & Gynecology
PROC: 10D00Z1 Extraction of Products of Conception, Low, Open Approach (ICD-10-PCS; CPT 59514; principal; 2019-10-23 13:15)
DX: O34.211 Maternal care for low transverse scar from previous cesarean delivery (principal); O42.013 Preterm premature rupture of membranes, onset of labor within 24 hours of rupture, third trimester; Z3A.36 36 weeks gestation of pregnancy; Z37.0 Single live birth; O99.334 Smoking (tobacco) complicating childbirth; Z11.59 Encounter for screening for other viral diseases
CPT/HCPCS: 36415; 59050; 59514; 85014; 85018; 85025; 86850; 86900; 86901; 87635; G0379; J0690; J1200; J1885; J2274; J2405; J2590

== ENCOUNTER 2020-01-05 17:41 | Emergency (ER) | payer OTHER, MEDICAID, SELFPAY ==
[2020-01-05 17:52] VITALS: PULSE 109; RESP 20; TEMP 36.4; O2SAT 100
--- NOTE | 2020-01-05 18:27 | ED_ITS ---
HPI - Skin/Abscess/Foreign Bdy <HA Peters - Last Filed: 01/05/20 19:35> General Chief complaint: Skin/Abscess/Foreign Body Stated complaint: thinks has Scabbies Time Seen by Provider: 01/05/20 17:55 Source: patient and family Mode of arrival: Ambulatory Limitations: no limitations History of Present Illness HPI narrative: The patient is a 34-year-old female current smoker with history of scabies approximately 18 months ago who presents with a chief complaint of concern of scabies. She states that she was exposed by any 1st child, and her child also has symptoms. She states that she noticed itching over the past few days of her scalp and her hands. She states that this is consistent with her previous exposure. She denies any fevers nausea vomiting or diarrhea. She d enies any chest pain shortness of breath or constitutional symptoms. Related Data Home Medications Medication Instructions Recorded Confirmed ferrous sulfate 325 mg PO DAILY 10/23/19 10/23/19 Previous Rx's Medication Instructions Recorded albuterol sulfate 90 mcg/actuation 2 inhalation INHALATION Q4-6H PRN 04/23/18 aerosol inhaler #8.5 gram prenat.vits,kathie,xad-eqfu-yyahr 1 tab PO DAILY #30 tab 03/27/19 Double Electric breast Pump and #1 each 10/16/19 Supplies PNV 119-iron fum-folic acid 1 tab PO DAILY #30 tab 10/25/19 docusate sodium [Colace] 100 mg PO DAILY #20 cap 10/25/19 ibuprofen 600 mg PO Q6H PRN #30 tab 10/25/19 oxycodone-acetaminophen [Percocet] 1 tab PO Q4-6H PRN #30 tab 10/25/19 permethrin 1 applictn TOP Q14D #60 gram 01/05/20 Allergies Allergy/AdvReac Type Severity Reaction Status Date / Time amoxicillin [AMOXICILLIN] Allergy Unknown HIVES Verified 09/30/19 15:52 clavulanic acid Allergy Unknown HIVES Verified 09/30/19 15:52 [CLAVULANIC ACID] montelukast [From SINGULAIR] Allergy Unknown BLOODY NOSE Verified 09/30/19 15:52 Review of Systems <HA Peters - Last Filed: 01/05/20 19:35> Review of Systems Narrative: GENERAL: Denies chills, fatigue, malaise, fever, sweats. HEENT: Denies sinus pain, ear pain, sore throat, difficulty swallowing, dizziness. RESPIRATORY: Denies dyspnea, cough, wheezing, hemoptysis, sputum. CARDIOVASCULAR: Denies chest pain, palpitations, orthopnea, edema, GASTROINTESTINAL: Denies nausea, vomiting, abdominal pain, diarrhea, constipation, melena. : Denies dysuria, frequency, incontinence, hematuria, urinary retention. MUSCULOSKELETAL: denies weakness, joint pain, or bony pain SKIN: See HPI NEUROLOGIC: Denies weakness, headache, numbness, change in speech, confusion, seizures, incoordination. PSYCHIATRIC: No concerning psychosocial issues. 12 point review of systems is negative except for those stated above Patient History <HA Peters - Last Filed: 01/05/20 19:35> Medical History (Updated 01/05/20 @ 18:50 by HA Peters) Depression (Acute) Patient denies medical problems (Acute) Surgical History (Updated 09/30/19 @ 18:45 by Lynne Luo MD) Status post section (Acute) Social History Smoking Status: Current every day smoker alcohol intake: former Smoking Status: Current every day smoker alcohol intake frequency: holidays/special occasions only Substance Use Type: marijuana Exam <HA Peters - Last Filed: 01/05/20 19:35> Narrative Exam Narrative: GENERAL: This is a well-nourished, well-developed patient, in no acute distress HEAD: Atraumatic. Normocephalic. No temporal or scalp tenderness. EYES: Pupils equal round and reactive. Extraocular motions intact. No scleral icterus. No injection or drainage. ENT: Nose without bleeding, purulent drainage or septal hematoma. Wearing a mask. Airway patent. NECK: Trachea midline. No JVD or lymphadenopathy. Supple, nontender, no meningeal signs. CARDIOVASCULAR: Regular rate and rhythm RESPIRATORY: No cough. No increased respiratory effort. No accessory muscle use. EXTREMITIES: Using all extremities equally BACK: Nontender without deformity or crepitance. No flank tenderness. NEURO: AOx3. SKIN: [place] head noted on palms, between fingers, on dorsum of hands. [place] and vesicles noted along hairline posterior scalp. Initial Vital Signs Initial Vital Signs: Vital Signs Temperature 97.6 F 01/05/20 17:52 Pulse Rate 109 H 01/05/20 17:52 Respiratory Rate 20 01/05/20 17:52 Pulse Oximetry 100 01/05/20 17:52 <Gordon Gupta DO - Last Filed: 01/05/20 20:07> Initial Vital Signs Initial Vital Signs: Vital Signs Temperature 97.6 F 01/05/20 17:52 Pulse Rate 109 H 01/05/20 17:52 Respiratory Rate 20 01/05/20 17:52 Pulse Oximetry 100 01/05/20 17:52 Scores <HA Peters - Last Filed: 01/05/20 19:35> GCS [place] coma scale eye opening: Spontaneous [place] coma scale verbal response: Orientated [place] coma scale motor response: Obey commands [place] coma scale total score: 15 Course <HA Peters - Last Filed: 01/05/20 19:35> Vital Signs Vital signs: Vital Signs - 8 hr 01/05/20 17:52 Temperature 97.6 F Pulse Rate 109 H Respiratory Rate 20 Pulse Oximetry 100 <Gordon Gupta DO - Last Filed: 01/05/20 20:07> Vital Signs Vital signs: Vital Signs - 8 hr 01/05/20 17:52 Temperature 97.6 F Pulse Rate 109 H Respiratory Rate 20 Pulse Oximetry 100 MDM - Skin/Abscess/Foreign Bdy <HA Peters - Last Filed: 01/05/20 19:35> MDM Narrative Medical decision making narrative: The patient is a 34-year-old female who presents with a chief complaint of exposure to scabies and scabies rash. Rash is consistent with scabies. Will initiate treatment with permethrin. Patient states she knows how to manage scabies, encouraged washing of lens treating all household etcetera. Encouraged follow-up with primary care provider in the next few days. Discussed coming back to ER for acute concerns. Patient has no questions or concerns upon discharge and states understanding of return precautions as well as follow-up care Discharge Plan Departure Patient Disposition: Home Clinical Impression: Scabies Discharge Date/Time: 01/05/20 19:00 Instructions: DI for Scabies Activity Restrictions/Additional Instructions: Thank you for trusting us with your care today. I sent a prescription of permethrin to [facility] to treat the scabies. Please be sure to treat all members in the household, wash all linens etcetera. I have included a handout regarding this. Please follow-up with primary care provider in the next few days. Please back to emergency department for any acute concerns. Prescriptions: New permethrin 5 % cream 1 applictn TOP Q14D Qty: 60 RF: 0 No Action albuterol sulfate 90 mcg/actuation HFA aerosol inhaler 2 inhalation INHALATION Q4-6H PRN (Reason: shortness of breath or wheezing) Qty: 8.5 RF: 0 (DME) Double Electric breast Pump and Supplies See Rx Instructions .ROUTE .MEDSUPPLY Qty: 1 RF: 0 ferrous sulfate 325 mg (65 mg iron) Tablet 325 mg PO DAILY RF: 0 ibuprofen 600 mg tablet 600 mg PO Q6H PRN (Reason: pain) Qty: 30 RF: 2 docusate sodium [Colace] 100 mg capsule 100 mg PO DAILY Qty: 20 RF: 2 oxycodone-acetaminophen [Percocet] 5-325 mg tablet 1 tab PO Q4-6H PRN (Reason: pain) Qty: 30 RF: 0 PNV 119-iron fum-folic acid 29 mg iron- 1 mg tablet 1 tab PO DAILY Qty: 30 RF: 11 prenat.vits,kathie,vzg-mydl-dkuai Tablet 1 tab PO DAILY Qty: 30 RF: 0 Referrals: [facility] [Outside] <Gordon Gupta, - Last Filed: 01/05/20 20:07> [facility] Dr Gupta Co-Sign Statement: I was available for consultation during this patient's emergency department visit. This chart is signed by myself for administrative purposes only. I did not have direct contact with this patient during this visit. They were seen independently by the APC.
== END 2020-01-05 19:00 | disposition home or self-care (01) ==
PROVIDERS: Emergency Provider Nurse Practitioner Family
DX: B86 Scabies (principal)
CPT/HCPCS: 99281

== ENCOUNTER 2020-01-08 17:23 | Emergency (ER) | payer OTHER, MEDICAID, SELFPAY ==
[2020-01-08 17:46] VITALS: PULSE 112; RESP 16; TEMP 36.3; O2SAT 98; BMI 29.7
--- NOTE | 2020-01-08 18:15 | ED.RECABL ---
HPI - Recheck/Abnormal Lab/Rx <HA Peters - Last Filed: 01/08/20 18:29> General Chief Complaint: Recheck/Abnormal Lab/Rx Stated Complaint: follow up scabbies Time Seen by Provider: 01/08/20 17:29 Source: patient Mode of arrival: Ambulatory Limitations: no limitations History of Present Illness HPI narrative: The patient is a 34-year-old female smoker with history of scabies exposure presents with a chief complaint of continued scabies. She was treated by permethrin approximately 36 to 48 hours ago. She complains of continued rash and its she denies any fevers nausea vomiting diarrhea. She states that she is living in a hotel, it is cleaning everything as best she can. She is not cleaned out the inside of her car yet. She states that she has washed all of her clothes, but is not sure about the temperature. She complains of continued rash on her hands and at the base of her scalp. Related Data Home Medications Medication Instructions Recorded Confirmed ferrous sulfate 325 mg PO DAILY 10/23/19 10/23/19 Previous Rx's Medication Instructions Recorded albuterol sulfate 90 mcg/actuation 2 inhalation INHALATION Q4-6H PRN 04/23/18 aerosol inhaler #8.5 gram prenat.vits,kathie,mqz-vexl-pvdqd 1 tab PO DAILY #30 tab 03/27/19 Double Electric breast Pump and #1 each 10/16/19 Supplies PNV 119-iron fum-folic acid 1 tab PO DAILY #30 tab 10/25/19 docusate sodium [Colace] 100 mg PO DAILY #20 cap 10/25/19 ibuprofen 600 mg PO Q6H PRN #30 tab 10/25/19 oxycodone-acetaminophen [Percocet] 1 tab PO Q4-6H PRN #30 tab 10/25/19 permethrin 1 applictn TOP Q14D #60 gram 01/05/20 Allergies Allergy/AdvReac Type Severity Reaction Status Date / Time amoxicillin [AMOXICILLIN] Allergy Unknown HIVES Verified 01/08/20 17:46 clavulanic acid Allergy Unknown HIVES Verified 01/08/20 17:46 [CLAVULANIC ACID] montelukast [From SINGULAIR] Allergy Unknown BLOODY NOSE Verified 01/08/20 17:46 Review of Systems <HA Peters - Last Filed: 01/08/20 18:29> Review of Systems Narrative: GENERAL: Denies chills, fatigue, malaise, fever, sweats. HEENT: Denies sinus pain, ear pain, sore throat, difficulty swallowing, dizziness. RESPIRATORY: Denies dyspnea, cough, wheezing, hemoptysis, sputum. CARDIOVASCULAR: Denies chest pain, palpitations, orthopnea, edema, GASTROINTESTINAL: Denies nausea, vomiting, abdominal pain, diarrhea, constipation, melena. : Denies dysuria, frequency, incontinence, hematuria, urinary retention. MUSCULOSKELETAL: denies weakness, joint pain, or bony pain SKIN: See HPI NEUROLOGIC: Denies weakness, headache, numbness, change in speech, confusion, seizures, incoordination. PSYCHIATRIC: No concerning psychosocial issues. 12 point review of systems is negative except for those stated above Patient History <HA Peters - Last Filed: 01/08/20 18:29> Medical History (Updated 01/08/20 @ 18:18 by HA Peters) Depression Patient denies medical problems Surgical History (Updated 09/30/19 @ 18:45 by Lynne Luo MD) Status post section Social History Smoking Status: Current every day smoker alcohol intake: former Smoking Status: Current every day smoker alcohol intake frequency: holidays/special occasions only Substance Use Type: marijuana Exam <HA Peters - Last Filed: 01/08/20 18:29> Narrative Exam Narrative: GENERAL: This is a well-nourished, well-developed patient, in no acute distress HEAD: Atraumatic. Normocephalic. No temporal or scalp tenderness. EYES: Pupils equal round and reactive. Extraocular motions intact. No scleral icterus. No injection or drainage. ENT: Nose without bleeding, purulent drainage or septal hematoma. Wearing a mask Airway patent. NECK: Trachea midline. No JVD or lymphadenopathy. Supple, nontender, no meningeal signs. CARDIOVASCULAR: Regular rate and rhythm RESPIRATORY: Clear to auscultation. Breath sounds equal bilaterally. No wheezes, rales, or rhonchi. No cough. No increased respiratory effort. No accessory muscle use. EXTREMITIES: No clubbing, cyanosis, or edema. No joint tenderness, effusion, or edema noted. BACK: Nontender without deformity or crepitance. No flank tenderness. NEURO: AOx3. SKIN: Crusted scabies rash at base of scalp. Scabies rash noted bilateral hands and between fingers, healing. Initial Vital Signs Initial Vital Signs: Vital Signs Temperature 97.4 F L 01/08/20 17:46 Pulse Rate 112 H 01/08/20 17:46 Respiratory Rate 16 01/08/20 17:46 Pulse Oximetry 98 01/08/20 17:46 <Candace Ray DO - Last Filed: 01/09/20 07:40> Initial Vital Signs Initial Vital Signs: Vital Signs Temperature 97.4 F L 01/08/20 17:46 Pulse Rate 112 H 01/08/20 17:46 Respiratory Rate 16 01/08/20 17:46 Pulse Oximetry 98 01/08/20 17:46 Scores <HA Peters - Last Filed: 01/08/20 18:29> GCS [place] coma scale eye opening: Spontaneous [place] coma scale verbal response: Orientated [place] coma scale motor response: Obey commands Charlie coma scale total score: 15 Course <HA Peters - Last Filed: 01/08/20 18:29> Vital Signs Vital signs: Vital Signs - 8 hr 01/08/20 17:46 Temperature 97.4 F L Pulse Rate 112 H Respiratory Rate 16 Pulse Oximetry 98 <Candace Ray DO - Last Filed: 01/09/20 07:40> Vital Signs Vital signs: Vital Signs - 8 hr 01/08/20 17:46 Temperature 97.4 F L Pulse Rate 112 H Respiratory Rate 16 Pulse Oximetry 98 MDM - Recheck/Abnormal Lab/Rx <YOVNAY Peters - Last Filed: 01/08/20 18:29> [facility] Narrative Medical decision making narrative: The patient is a 34-year-old female smoker with history of scabies exposure presents with a chief complaint of continued scabies. She was treated by permethrin approximately 36 to 48 hours ago. I discussed that it can last after being treated with permethrin, discussed that she was given enough medication for repeat treatment in 2 weeks. Discussed at length precautions including washing everything at night temperature etcetera, I think she might be having trouble washing everything due to living in a hotel. Encouraged follow-up with primary care provider in the next few days. Discussed coming back to ER for acute concerns. Patient has no questions or concerns upon discharge and states understanding of return precautions as well as follow-up care. Discharge Plan Departure Patient Disposition: Home Clinical Impression: Scabies Instructions: Scabies, DI for Scabies Activity Restrictions/Additional Instructions: Thank you for trusting us with your care today. As discussed, itching can continue after scabies treatment. As discussed, the treatment can be repeated in 14 days. Please follow-up with primary care provider. Please be sure to use all the precautions outlined in handout. Please come back to the emergency department for any acute concerns. Prescriptions: No Action albuterol sulfate 90 mcg/actuation HFA aerosol inhaler 2 inhalation INHALATION Q4-6H PRN (Reason: shortness of breath or wheezing) Qty: 8.5 RF: 0 (DME) Double Electric breast Pump and Supplies See Rx Instructions .ROUTE .MEDSUPPLY Qty: 1 RF: 0 ferrous sulfate 325 mg (65 mg iron) Tablet 325 mg PO DAILY RF: 0 ibuprofen 600 mg tablet 600 mg PO Q6H PRN (Reason: pain) Qty: 30 RF: 2 docusate sodium [Colace] 100 mg capsule 100 mg PO DAILY Qty: 20 RF: 2 oxycodone-acetaminophen [Percocet] 5-325 mg tablet 1 tab PO Q4-6H PRN (Reason: pain) Qty: 30 RF: 0 PNV 119-iron fum-folic acid 29 mg iron- 1 mg tablet 1 tab PO DAILY Qty: 30 RF: 11 prenat.vits,kathie,byk-lkto-srvqa Tablet 1 tab PO DAILY Qty: 30 RF: 0 permethrin 5 % cream 1 applictn TOP Q14D Qty: 60 RF: 0 Referrals: [facility] [Outside] <Candace Ray DO - Last Filed: 01/09/20 07:40> [facility] ED Attending [place] Attestation: I was immediately available in the department for consultation. Documentation has been reviewed. I agree with assessment and plan.
== END 2020-01-08 18:36 | disposition home or self-care (01) ==
PROVIDERS: Emergency Provider Nurse Practitioner Family
DX: B86 Scabies (principal)
CPT/HCPCS: 99281